=== PATIENT | male | born 1965 | race Caucasian/White ===

== ENCOUNTER 2019-01-10 15:03 | Observation (INO) ==
[2019-01-10 15:31] LABS: Basophils # 0.1 10*3/uL (0.0-0.2); Basophils % 0.8 % (0.0-0.8); Eosinophils # 0.2 10*3/uL (0.0-0.87); Eosinophils % 2.6 % (0.00-10.9); Hematocrit 46.8 VOL% (42.0-52.0); Hemoglobin 16.3 GM/DL (14.0-18.0); Immature Granulocytes % 0.6 %; Immature Granulocytes Absolute 0.05 #; Lymphocytes # 2.4 10*3/uL (1.4-4.0); Lymphocytes % 26.7 % (21.2-54.2); Mean Corpuscular HGB Conc 34.8 GM/DL (32-36); Mean Corpuscular Volume 82.8 FL (87-102); Mean Platelet Volume 10.3 FL (9.6-12.0); Monocytes % 8.5 % (1.7-12.7); Neutrophils % 60.8 % (38.7-73.9); Platelet Count 222 T/CUMM (130-400); Red Blood Count 5.65 MC/CUMM (3.8-5.5); Red Cell Distribution Width 12.8 % (9.3-17.3); White Blood Count 8.9 T/CUMM (4-12)
[2019-01-10 15:52] LABS: Albumin 3.7 G/DL (3.4-5.0); Calcium 8.9 MG/DL (8.5-10.1); Osmolality,Calculated 289.5 MOS/KG (273-304); Total Protein 6.3 G/DL (6.4-8.3)
[2019-01-10 16:10] LABS: Apearance,Urine CLEAR (Clear); Bilirubin,Urine Negative (Negative); Blood, Urine Negative (Negative); Glucose,Urine (UA) >=500 mg/dL (Negative); Ketones,Urine Negative (Negative); Nitrite,Urine Negative (Negative); Protein,Urine Negative; RBC,Urine 1 /HPF (0-4); Squamous Epithelial Cell,Urine Occasional /HPF (0-10); Urine Color Straw (Yellow); Urine Specific Gravity 1.021 (1.001-1.035); Urine Urobilinogen < 2.0 EU/DL (0.2-1.0); WBC,Urine 1 /HPF (0-6)
[2019-01-10] MEDS ORDERED: METOPROLOL TARTRATE 5 MG/5 ML VIAL IV ONE (16:31)
[2019-01-10] MEDS ORDERED: NITROGLYCERIN 2% OINT 1 INCH/GM PACK TOP ONE (16:31)
[2019-01-10] MEDS ORDERED: METOPROLOL TARTRATE 5 MG/5 ML VIAL IV STA (16:50)
[2019-01-10] MEDS ORDERED: NITROGLYCERIN 2% OINT 1 INCH/GM PACK TOP STA (16:51)
[2019-01-10] MEDS ORDERED: ACETAMINOPHEN 325 MG TABLET PO PRN (17:40)
[2019-01-10] MEDS ORDERED: ONDANSETRON 4 MG/2 ML VIAL IV PRN (17:40)
[2019-01-10] MEDS ORDERED: NITROGLYCERIN SL 0.4 MG TABLET SL PRN (17:44)
[2019-01-10] MEDS: ENOXAPARIN 100 MG/ML SYRINGE SUBCUT SCH (18:36)
[2019-01-10] MEDS ORDERED: hydrALAZINE 20 MG/1 ML VIAL IV PRN (20:24)
[2019-01-10] MEDS: BUTALBITAL/ACETAMIN/CAFFEINE 50-325-40 MG TABLET PO PRN (20:56)
[2019-01-10] MEDS: carvediloL 6.25 MG TABLET PO SCH (20:56)
[2019-01-10] MEDS: INSULIN REGULAR 100 UNIT/ML SUBCUT SCH (21:08)
[2019-01-11] MEDS: BUTALBITAL/ACETAMIN/CAFFEINE 50-325-40 MG TABLET PO PRN (05:13)
[2019-01-11] MEDS: ENOXAPARIN 100 MG/ML SYRINGE SUBCUT SCH (06:08)
[2019-01-11] MEDS: INSULIN REGULAR 100 UNIT/ML SUBCUT SCH ×4 (09:00→21:30)
[2019-01-11] MEDS: ASPIRIN 325 MG TABLET PO SCH (09:11)
[2019-01-11] MEDS: lisinopriL 10 MG TABLET PO SCH (09:11)
[2019-01-11] MEDS: carvediloL 6.25 MG TABLET PO SCH ×2 (09:11→16:43)
[2019-01-11 10:27] LABS: Calcium 8.4 MG/DL (8.5-10.1); Osmolality,Calculated 279.7 MOS/KG (273-304)
[2019-01-11 11:32] LABS: Troponin I < 0.015 NG/ML (0.00-0.045)
[2019-01-11 14:40] LABS: Troponin I < 0.015 NG/ML (0.00-0.045)
[2019-01-11] MEDS ORDERED: CLORAZEPATE 3.75 MG TABLET PO PRN (19:31)
[2019-01-11] MEDS ORDERED: amLODIPine 5 MG TABLET PO ONE (19:32)
[2019-01-11] MEDS ORDERED: carvediloL 6.25 MG TABLET PO ONE (21:10)
[2019-01-11] MEDS ORDERED: MORPHINE 4 MG/1 ML VIAL IV PRN (21:11)
[2019-01-11] MEDS ORDERED: hydrALAZINE 20 MG/1 ML VIAL IV PRN (23:00)
[2019-01-12] MEDS ORDERED: ENOXAPARIN 40 MG/0.4 ML SYRINGE SUBCUT SCH (06:00)
[2019-01-12] MEDS: INSULIN REGULAR 100 UNIT/ML SUBCUT SCH ×2 (08:13→12:12)
[2019-01-12] MEDS: lisinopriL 10 MG TABLET PO SCH (08:13)
[2019-01-12] MEDS: ASPIRIN 325 MG TABLET PO SCH (08:13)
[2019-01-12] MEDS ORDERED: PANTOPRAZOLE 40 MG TABLET PO SCH (09:00)
[2019-01-12] MEDS ORDERED: carvediloL 12.5 MG TABLET PO SCH (09:00)
[2019-01-12] MEDS ORDERED: amLODIPine 5 MG TABLET PO SCH (09:00)
[2019-01-12 12:14] VITALS: BP 125/90
[2019-01-12] MEDS ORDERED: NAPROXEN 500 MG TABLET PO PRN (13:56)
== END 2019-01-12 15:23 | disposition home or self-care (01) ==
LOC: N.EDINP 15:03 → N.ED 15:03 → N.TELES 17:44
PROVIDERS: ADMIT Family Medicine; ATTEND Family Medicine

== ENCOUNTER 2019-03-29 14:47 | Observation (INO) ==
[2019-03-29] MEDS ORDERED: ENOXAPARIN 100 MG/ML SYRINGE SUBCUT STA (15:38)
[2019-03-29] MEDS ORDERED: NITROGLYCERIN SL 0.4 MG TABLET SL PRN ×2 (15:38→16:32)
[2019-03-29] MEDS ORDERED: NITROGLYCERIN 2% OINT 1 INCH/GM PACK TOP STA (15:38)
[2019-03-29] MEDS ORDERED: ENOXAPARIN 120 MG/0.8 ML SYRINGE SUBCUT ONE (15:43)
[2019-03-29 15:51] LABS: Basophils # 0.1 10*3/uL (0.0-0.2); Basophils % 0.9 % (0.0-0.8); Eosinophils # 0.2 10*3/uL (0.0-0.87); Eosinophils % 2.6 % (0.00-10.9); Hematocrit 47.1 VOL% (42.0-52.0); Hemoglobin 16.4 GM/DL (14.0-18.0); Immature Granulocytes % 1.1 %; Immature Granulocytes Absolute 0.09 #; Lymphocytes # 2.2 10*3/uL (1.4-4.0); Lymphocytes % 25.4 % (21.2-54.2); Mean Corpuscular HGB Conc 34.8 GM/DL (32-36); Mean Corpuscular Volume 81.8 FL (87-102); Mean Platelet Volume 10.4 FL (9.6-12.0); Monocytes % 8.7 % (1.7-12.7); Neutrophils % 61.3 % (38.7-73.9); Platelet Count 209 T/CUMM (130-400); Red Blood Count 5.76 MC/CUMM (3.8-5.5); Red Cell Distribution Width 12.7 % (9.3-17.3); White Blood Count 8.6 T/CUMM (4-12)
[2019-03-29 16:06] LABS: Albumin 3.7 G/DL (3.4-5.0); Bilirubin,Total 0.7 MG/DL (0.2-1.0); Calcium 8.2 MG/DL (8.5-10.1); Osmolality,Calculated 287.5 MOS/KG (273-304); Total Protein 6.3 G/DL (6.4-8.3)
[2019-03-29] MEDS ORDERED: DEXTROSE 50% 25 GM/50 ML VIAL IV PRN (16:32)
[2019-03-29] MEDS ORDERED: GLUCAGON 1 MG VIAL IM PRN (16:32)
[2019-03-29] MEDS ORDERED: ACETAMINOPHEN 325 MG TABLET PO PRN (16:32)
[2019-03-29] MEDS ORDERED: ONDANSETRON 4 MG/2 ML VIAL IV PRN (16:32)
[2019-03-29] MEDS ORDERED: amLODIPine 5 MG TABLET PO ONE (17:05)
[2019-03-29] MEDS ORDERED: ASPIRIN CHEW 81 MG TABLET PO ONE (17:07)
[2019-03-29] MEDS ORDERED: MAGNESIUM SULF RIDER 4 GM in PREMIX 1 EACH IV PRN (17:44)
[2019-03-29] MEDS ORDERED: LACTULOSE 20 GM/30 ML UDCUP PO PRN (17:44)
[2019-03-29] MEDS ORDERED: MAGNESIUM SULF RIDER 2 GM in PREMIX 1 EACH IV PRN (17:44)
[2019-03-29] MEDS ORDERED: POTASSIUM CHLORIDE 20 MEQ TABLET PO PRN (17:44)
[2019-03-29] MEDS ORDERED: guaiFENesin/DM ER 600-30 MG TABLET PO PRN (17:44)
[2019-03-29] MEDS ORDERED: BISACODYL 5 MG TABLET PO PRN (17:44)
[2019-03-29] MEDS ORDERED: ZALEPLON 5 MG CAPSULE PO PRN (17:44)
[2019-03-29] MEDS ORDERED: MORPHINE 4 MG/1 ML VIAL IV PRN (17:44)
[2019-03-29] MEDS ORDERED: diphenhydrAMINE CAP 25 MG CAPSULE PO PRN (17:44)
[2019-03-29] MEDS ORDERED: MAGNESIUM SULF RIDER 4 GM in PREMIX 1 EACH IV ONE (18:00)
[2019-03-29] MEDS: LISINOPRIL 20 MG TABLET PO SCH (18:53)
[2019-03-29] MEDS: carvediloL 25 MG TABLET PO SCH (21:22)
[2019-03-29] MEDS: GABAPENTIN 100 MG CAPSULE PO SCH (21:22)
[2019-03-29] MEDS: ACETAMINOPHEN 325 MG TABLET PO SCH (21:22)
[2019-03-29 22:15] LABS: Troponin I < 0.015 NG/ML (0.00-0.045)
[2019-03-30 04:56] LABS: Basophils # 0.1 10*3/uL (0.0-0.2); Basophils % 0.8 % (0.0-0.8); Eosinophils # 0.2 10*3/uL (0.0-0.87); Eosinophils % 2.6 % (0.00-10.9); Hemoglobin 14.9 GM/DL (14.0-18.0); Immature Granulocytes Absolute 0.08 #; Lymphocytes # 2.8 10*3/uL (1.4-4.0); Lymphocytes % 35.4 % (21.2-54.2); Mean Corpuscular HGB Conc 33.9 GM/DL (32-36); Mean Corpuscular Volume 82.1 FL (87-102); Mean Platelet Volume 10.7 FL (9.6-12.0); Monocytes % 9.1 % (1.7-12.7); Neutrophils % 51.1 % (38.7-73.9); Platelet Count 184 T/CUMM (130-400); Red Blood Count 5.36 MC/CUMM (3.8-5.5); Red Cell Distribution Width 12.8 % (9.3-17.3); White Blood Count 7.9 T/CUMM (4-12)
[2019-03-30 05:16] LABS: Calcium 7.8 MG/DL (8.5-10.1); Osmolality,Calculated 281.5 MOS/KG (273-304); Risk Ratio 7.1; VLDL CHOLESTEROL 133.2 MG/DL
[2019-03-30] MEDS ORDERED: PANTOPRAZOLE 40 MG TABLET PO SCH ×2 (07:30→09:00)
[2019-03-30] MEDS ORDERED: amLODIPine 5 MG TABLET PO SCH (07:30)
[2019-03-30] MEDS ORDERED: ASPIRIN CHEW 81 MG TABLET PO SCH (08:00)
[2019-03-30] MEDS ORDERED: POTASSIUM CHLORIDE 20 MEQ/15 ML UDCUP PO ONE (08:32)
[2019-03-30] MEDS: INSULIN REGULAR 100 UNIT/ML SUBCUT SCH ×2 (08:34→15:30)
[2019-03-30] MEDS: amLODIPine 10 MG TABLET PO SCH (08:46)
[2019-03-30] MEDS: PANTOPRAZOLE 40 MG TABLET PO SCH (08:46)
[2019-03-30] MEDS: carvediloL 25 MG TABLET PO SCH ×2 (08:46→21:37)
[2019-03-30] MEDS: GABAPENTIN 100 MG CAPSULE PO SCH ×3 (08:46→21:37)
[2019-03-30] MEDS: hydroCHLOROthiazide 12.5 MG CAPSULE PO SCH (08:46)
[2019-03-30] MEDS: ACETAMINOPHEN 325 MG TABLET PO SCH ×2 (08:47→21:37)
[2019-03-30] MEDS: ASPIRIN CHEW 81 MG TABLET PO SCH (08:55)
[2019-03-30] MEDS ORDERED: ASPIRIN EC 81 MG TABLET PO SCH (09:00)
[2019-03-30] MEDS ORDERED: MAGNESIUM SULF RIDER 2 GM in PREMIX 1 EACH IV PRN (11:45)
[2019-03-30] MEDS ORDERED: DIAZEPAM 5 MG TABLET PO ONE (11:45)
[2019-03-30] MEDS ORDERED: POTASSIUM CHLORIDE RIDER 10 MEQ in PREMIX 1 EACH IV PRN (11:45)
[2019-03-30] MEDS ORDERED: SODIUM CHLORIDE 0.9% 1,000 ML IV SCH (11:46)
[2019-03-30] MEDS ORDERED: MIDAZOLAM 2 MG/2 ML VIAL ONE (12:10)
[2019-03-30] MEDS ORDERED: fentaNYL 100 MCG/2 ML VIAL ONE (12:11)
[2019-03-30] MEDS ORDERED: LIDOCAINE 1% 20 ML VIAL ONE (12:48)
[2019-03-30] MEDS ORDERED: DEXTROSE 10% 250 ML BAG IV PRN (13:29)
[2019-03-30] MEDS: ISOSORBIDE MONONITRATE 20 MG TABLET PO SCH (15:35)
[2019-03-30] MEDS: GEMFIBROZIL 600 MG TABLET PO SCH (17:38)
[2019-03-30] MEDS: LISINOPRIL 20 MG TABLET PO SCH (17:51)
[2019-03-30] MEDS ORDERED: ROSUVASTATIN 10 MG TABLET PO SCH (21:00)
[2019-03-31 03:59] LABS: Basophils # 0.1 10*3/uL (0.0-0.2); Basophils % 0.8 % (0.0-0.8); Eosinophils # 0.2 10*3/uL (0.0-0.87); Eosinophils % 2.5 % (0.00-10.9); Hematocrit 44.4 VOL% (42.0-52.0); Hemoglobin 15.3 GM/DL (14.0-18.0); Immature Granulocytes % 0.9 %; Immature Granulocytes Absolute 0.07 #; Lymphocytes # 2.7 10*3/uL (1.4-4.0); Lymphocytes % 34.2 % (21.2-54.2); Mean Corpuscular HGB Conc 34.5 GM/DL (32-36); Mean Corpuscular Volume 83.6 FL (87-102); Mean Platelet Volume 10.4 FL (9.6-12.0); Monocytes % 11.2 % (1.7-12.7); Neutrophils % 50.4 % (38.7-73.9); Platelet Count 191 T/CUMM (130-400); Red Blood Count 5.31 MC/CUMM (3.8-5.5); Red Cell Distribution Width 12.7 % (9.3-17.3); White Blood Count 7.9 T/CUMM (4-12)
[2019-03-31 04:15] LABS: Calcium 7.9 MG/DL (8.5-10.1); Osmolality,Calculated 283.7 MOS/KG (273-304)
[2019-03-31] MEDS: ASPIRIN CHEW 81 MG TABLET PO SCH (09:17)
[2019-03-31] MEDS: INSULIN REGULAR 100 UNIT/ML SUBCUT SCH (09:17)
[2019-03-31] MEDS: amLODIPine 10 MG TABLET PO SCH (09:18)
[2019-03-31] MEDS: carvediloL 25 MG TABLET PO SCH (09:18)
[2019-03-31] MEDS: PANTOPRAZOLE 40 MG TABLET PO SCH (09:18)
[2019-03-31] MEDS: GABAPENTIN 100 MG CAPSULE PO SCH (09:18)
[2019-03-31] MEDS: ACETAMINOPHEN 325 MG TABLET PO SCH (09:18)
[2019-03-31] MEDS: GEMFIBROZIL 600 MG TABLET PO SCH (09:19)
[2019-03-31] MEDS: ISOSORBIDE MONONITRATE 20 MG TABLET PO SCH (09:19)
[2019-03-31] MEDS: hydroCHLOROthiazide 12.5 MG CAPSULE PO SCH (09:22)
[2019-03-31 12:18] VITALS: BP 119/66
[2019-04-02] MEDS ORDERED: ERGOCALCIFEROL 50,000 UNIT CAPSULE PO SCH (09:00)
== END 2019-03-31 14:40 | disposition home or self-care (01) ==
LOC: N.EDINP 14:47 → N.ED 14:47 → N.2W 17:10
PROVIDERS: ADMIT Family Medicine; ATTEND Family Medicine
PROC: CLCCHCL (ICD-10-PCS; 2019-03-30 12:15)